=== PATIENT | male | born 1955 | race Caucasian/White ===

== ENCOUNTER 2018-05-17 00:19 | Emergency (ER) | payer OTHER ==
[2018-05-17] MEDS ORDERED: NA CHLORIDE 0.9% 1,000 ML ONE (01:50)
[2018-05-17] MEDS ORDERED: ONDANSETRON 4 MG/2 ML VIAL ONE (01:50)
[2018-05-17 02:15] LABS: Absolute Lymphocytes (CBC) 1.1 K/uL (0.7-4.9); Absolute Monocytes 0.6 K/uL (0.1-1.3); Absolute Neutrophil 10.8 K/uL (1.8-8.0); Basophils % 0.3 % (0-1.3); Eosinophils % 0.2 % (0-4.4); Hematocrit 44.4 % (39.6-49.0); Lymphocytes % 8.9 % (15.3-44.8); MCV 89.4 fL (80-100); MPV 9.4 fL (7.6-11.3); Monocytes % 5.1 % (3.3-12.3); RBC Red Blood Cell Count 4.96 M/uL (4.33-5.43)
[2018-05-17 02:53] LABS: Albumin 4.3 g/dL (3.4-5.0); Bilirubin Direct 0.1 mg/dL (0-0.2); Bilirubin Total 0.6 mg/dL (0.2-1.0); Potassium 4.1 mmol/L (3.5-5.1); Protein, Total 8.4 g/dL (6.4-8.2)
[2018-05-17 03:22] LABS: Urine Bacteria >50 /HPF (NONE SEEN); Urine Culture Reflex Order REFLEXED; Urine RBC <5 /HPF (NONE SEEN)
[2018-05-17 03:24] LABS: Urine Blood TRACE (NEG); Urine Glucose NEGATIVE (NEG); Urine Protein TRACE (NEG); Urine Specific Gravity 1.015 (1.005-1.030)
[2018-05-17 03:26] LABS: Blood Morphology Comment NOT SEEN (NOT SEEN); Platelet Estimate ADEQ
--- NOTE | 2018-05-17 04:02 | EDPHYS ---
Physician Documentation [facility] Name: Shaun Adkins Age: 62 yrs Sex: Male : 1955 Arrival Date: 05/17/2018 Time: 00:21 Bed 8 Private MD: Joe Torres T ED Physician Derrell Palmer HPI: 05/17 02:15 This 62 yrs old Male presents to ER via Ambulatory with complaints of wa Nausea/Vomiting, STOMACH PAIN. 02:15 The patient presents to the emergency department with nausea, vomiting, abdominal pain. wa Onset: The symptoms/episode began/occurred 2 day(s) ago. 02:46 Possible causes: unknown. The symptoms are aggravated by nothing. The symptoms are wa alleviated by nothing. Associated signs and symptoms: Pertinent positives: abdominal pain, nausea, vomiting, Pertinent negatives: diarrhea, dysuria, fever. Severity of symptoms: At their worst the symptoms were moderate in the emergency department the symptoms are unchanged. The patient has not experienced similar symptoms in the past. The patient has not recently seen a physician. h/o bladder CA. s/p cystostomy with redirected ostomy. Historical: - Allergies: 00:47 PENICILLINS; lp1 - Home Meds: 00:47 levothyroxine oral [Active]; lp1 - PMHx: 00:47 Bladder cancer; Thyroid problem; lp1 - PSHx: 00:47 Hernia repair; urostomy; lp1 - Immunization history:: Adult Immunizations up to date. - Social history:: Smoking status: Patient/guardian denies using tobacco. - Ebola Screening: : No symptoms or risks identified at this time. - Family history:: not pertinent. - Hospitalizations: : No recent hospitalization is reported. ROS: 02:48 Constitutional: Negative for fever, chills, and weight loss, Eyes: Negative for injury, wa pain, redness, and discharge, ENT: Negative for injury, pain, and discharge, Neck: Negative for injury, pain, and swelling, Cardiovascular: Negative for chest pain, palpitations, and edema, Respiratory: Negative for shortness of breath, cough, wheezing, and pleuritic chest pain, Back: Negative for injury and pain, : Negative for injury, bleeding, discharge, and swelling, MS/Extremity: Negative for injury and deformity, Skin: Negative for injury, rash, and discoloration, Neuro: Negative for headache, weakness, numbness, tingling, and seizure, Psych: Negative for depression, anxiety, suicide ideation, homicidal ideation, and hallucinations. 02:48 Abdomen/GI: Positive for abdominal pain, nausea and vomiting, Negative for diarrhea. 02:48 All other systems are negative. Exam: 02:49 Constitutional: This is a well developed, well nourished patient who is awake, alert, wa and in no acute distress. Head/Face: Normocephalic, atraumatic. Eyes: Pupils equal round and reactive to light, extra-ocular motions intact. Lids and lashes normal. Conjunctiva and sclera are non-icteric and not injected. Cornea within normal limits. Periorbital areas with no swelling, redness, or edema. ENT: Nares patent. No nasal discharge, no septal abnormalities noted. Tympanic membranes are normal and external auditory canals are clear. Oropharynx with no redness, swelling, or masses, exudates, or evidence of obstruction, uvula midline. Mucous membranes moist. Neck: Trachea midline, no thyromegaly or masses palpated, and no cervical lymphadenopathy. Supple, full range of motion without nuchal rigidity, or vertebral point tenderness. No Meningismus. Cardiovascular: Regular rate and rhythm with a normal S1 and S2. No gallops, murmurs, or rubs. Normal PMI, no JVD. No pulse deficits. Respiratory: Lungs have equal breath sounds bilaterally, clear to auscultation and percussion. No rales, rhonchi or wheezes noted. No increased work of breathing, no retractions or nasal flaring. Back: No spinal tenderness. No costovertebral tenderness. Full range of motion. Skin: Warm, dry with normal turgor. Normal color with no rashes, no lesions, and no evidence of cellulitis. MS/ Extremity: Pulses equal, no cyanosis. Neurovascular intact. Full, normal range of motion. Neuro: Awake and alert, GCS 15, oriented to person, place, time, and situation. Cranial nerves II-XII grossly intact. Motor strength 5/5 in all extremities. Sensory grossly intact. Cerebellar exam normal. Normal gait. Psych: Awake, alert, with orientation to person, place and time. Behavior, mood, and affect are within normal limits. 02:49 Abdomen/GI: Inspection: abdomen appears normal, Bowel sounds: normal, in all quadrants, Palpation: soft, in all quadrants, mild abdominal tenderness, in the diffuse. Vital Signs: 00:47 BP 128 / 98; Pulse 81; Resp 18; Temp 97.5(O); Pulse Ox 100% on R/A; Weight 90.72 kg; lp1 Height 5 ft. 10 in. (177.80 cm); 01:49 BP 128 / 87; Pulse 75; Resp 18; Pulse Ox 99% on R/A; ak1 00:47 Body Mass Index 28.70 (90.72 kg, 177.80 cm) lp1 MDM: 00:52 Patient medically screened. mn 02:50 Differential diagnosis: Nonspecific abd pain, gastritis, r/o bowel obstruction. will wa work up with labs and CT. will treat pain and reassess. 03:58 Data reviewed: vital signs, nurses notes. Test interpretation: by ED physician or wa midlevel provider: CT abd/pelvis: no acute process. labs noted for leukocytosis of 12.6 UA noted for >50 wbc per HPF. . ED course: improved. states no pain at 0400hrs. In the setting of ostomy, UA results could be contamination, however in the setting of pain and vomiting with no other source to explain presentation, will cover with abx and advise close f/u. 17:10 ED course: Called Mr. Adkins to inform him of the updated radiology findings. Discussed kdr both the enteritis and the umbilical hernia findings. He had no additional questions and was happy with the updated information. He indicated that he would contact his [facility] team to determine if they would need this information. 05/17 01:26 Order name: Basic Metabolic Panel; Complete Time: 03:00 mn 05/17 01:26 Order name: CBC with Diff; Complete Time: 03:44 mn 05/17 01:26 Order name: Hepatic Function; Complete Time: 03:00 mn 05/17 01:26 Order name: Lipase; Complete Time: 03:00 mn 05/17 01:26 Order name: Urine Microscopic Only; Complete Time: 03:44 mn 05/17 02:21 Order name: Manual Differential; Complete Time: 03:44 EDMS 05/17 01:26 Order name: IV Saline Lock; Complete Time: 01:41 mn 05/17 01:26 Order name: CT Abd/Pelvis - W/Contrast mn 05/17 02:59 Order name: Urine Dipstick--Ancillary (enter results); Complete Time: 03:44 md 05/17 03:24 Order name: Urine Culture [facility] 05/17 01:26 Order name: Labs collected and sent; Complete Time: 01:41 wa 05/17 01:26 Order name: Urine Dipstick-Ancillary (obtain specimen); Complete Time: 03:20 wa Administered Medications: 01:47 Drug: Zofran 4 mg Route: IVP; Site: right forearm; ak1 03:20 Follow up: Response: No adverse reaction ak1 01:47 Drug: NS 0.9% 1000 ml Route: IV; Rate: 1 bolus; Site: right forearm; ak1 02:50 Follow up: IV Status: Completed infusion ak1 03:58 CANCELLED (Physician Discretion): LevaQUIN 500 mg 100 ml IVPB once over 60 mins mn 04:13 Drug: LevaQUIN 500 mg Route: PO; ak1 04:13 Follow up: Response: Medication administered at discharge. ak1 Disposition: 05/17/18 04:02 Discharged to Home. Impression: Acute abdominal Pain, Acute vomiting, UTI. - Condition is Stable. - Discharge Instructions: Urinary Tract Infection, Adult, Nausea and Vomiting, Adult, [id number], Abdominal Pain, Adult, [id number]. - Prescriptions for Levaquin 500 mg Oral Tablet - take 1 tablet by ORAL route once daily for 3 days; 3 tablet. Zofran 4 mg Oral Tablet - take 1 tablet by ORAL route every 12 hours As needed; 20 tablet. - Medication Reconciliation Form, Thank You Letter, Antibiotic Education, Prescription Opioid Use form. - Follow up: Private Physician; When: 1 - 2 days; Reason: Recheck today's complaints. - Problem is new. - Symptoms have improved. - Notes: take medicine as prescribed. follow up with your doctor within 1-2 days for further assessment. return here immediately for any worsening or worrisome concerns Signatures: Dispatcher [employer] EDNY Devonte Leos MD MD kdr Pena, Laura, RN RN lp1 Farheen Wayne RN RN ak1 Derrell Palmer MD MD wa Corrections: (The following items were deleted from the chart) 03:58 03:53 LevaQUIN 500 mg 100 ml IVPB once over 60 mins ordered. [facility] 04:14 04:02 05/17/2018 04:02 Discharged to Home. Impression: Acute abdominal Pain; Acute ak1 vomiting; UTI. Condition is Stable. Forms are Medication Reconciliation Form, Thank You Letter, Antibiotic Education, Prescription Opioid Use. Follow up: Private Physician; When: 1 - 2 days; Reason: Recheck today's complaints. Problem is new. Symptoms have improved. mn
--- NOTE | 2018-05-17 04:02 | ER ---
Nurse's Notes [facility] Name: Shaun Adkins Age: 62 yrs Sex: Male : 1955 Arrival Date: 05/17/2018 Time: 00:21 Bed 8 Private MD: Joe Torres T Diagnosis: Acute abdominal Pain;Acute vomiting;UTI Presentation: 05/17 00:44 Presenting complaint: Patient states: Abdominal pain to mid abdomen that began this lp1 evening with vomiting; States regular BM, but feeling bloated, abdomen distended. Transition of care: patient was not received from another setting of care. Onset of symptoms was May 16, 2018 at 16:00. Risk Assessment: Do you want to hurt yourself or someone else? Patient reports no desire to harm self or others. Initial Sepsis Screen: Does the patient meet any 2 criteria? No. Patient's initial sepsis screen is negative. Does the patient have a suspected source of infection? No. Patient's initial sepsis screen is negative. Care prior to arrival: None. 00:44 Method Of Arrival: Ambulatory lp1 00:44 Acuity: EMILIANO 3 lp1 Historical: - Allergies: 00:47 PENICILLINS; lp1 - Home Meds: 00:47 levothyroxine oral [Active]; lp1 - PMHx: 00:47 Bladder cancer; Thyroid problem; lp1 - PSHx: 00:47 Hernia repair; urostomy; lp1 - Immunization history:: Adult Immunizations up to date. - Social history:: Smoking status: Patient/guardian denies using tobacco. - Ebola Screening: : No symptoms or risks identified at this time. - Family history:: not pertinent. - Hospitalizations: : No recent hospitalization is reported. Screenin:47 Abuse screen: Denies threats or abuse. Denies injuries from another. Nutritional lp1 screening: No deficits noted. Tuberculosis screening: No symptoms or risk factors identified. Fall Risk None identified. Assessment: 01:48 General: Appears in no apparent distress. Behavior is calm, cooperative. Pain: ak1 Complains of pain in abdomen. Neuro: No deficits noted. Cardiovascular: No deficits noted. Respiratory: No deficits noted. GI: Abdomen is round Bowel sounds present X 4 quads. : Reports urostomy. pt denies urine output at this time, will check again for urine sample. : No signs and/or symptoms were reported regarding the genitourinary system. EENT: No signs and/or symptoms were reported regarding the EENT system. Derm: No signs and/or symptoms reported regarding the dermatologic system. Musculoskeletal: No signs and/or symptoms reported regarding the musculoskeletal system. 03:20 Reassessment: Patient appears in no apparent distress at this time. Patient and/or ak1 family updated on plan of care and expected duration. Pain level reassessed. Patient is alert, oriented x 3, equal unlabored respirations, skin warm/dry/pink. Patient denies pain at this time. Patient states feeling better. Patient states symptoms have improved. Vital Signs: 00:47 BP 128 / 98; Pulse 81; Resp 18; Temp 97.5(O); Pulse Ox 100% on R/A; Weight 90.72 kg; lp1 Height 5 ft. 10 in. (177.80 cm); 01:49 BP 128 / 87; Pulse 75; Resp 18; Pulse Ox 99% on R/A; ak1 00:47 Body Mass Index 28.70 (90.72 kg, 177.80 cm) lp1 ED Course: 00:21 Patient arrived in ED. al2 00:22 Joe Torres MD is Private Physician. al2 00:38 Farheen Wayne, AG is Primary Nurse. ak1 00:46 Triage completed. lp1 00:47 Arm band placed on right wrist. lp1 00:52 Derrell Palmer MD is Attending Physician. wa 01:47 Initial lab(s) drawn, by nc, sent to lab. Inserted saline lock: 20 gauge in right ak1 forearm, using aseptic technique. Blood collected. 01:49 Patient has correct armband on for positive identification. Bed in low position. Call ak1 light in reach. Side rails up X 1. Adult w/ patient. Pulse ox on. NIBP on. 03:16 CT completed. Patient tolerated procedure well. Patient moved to CT WALKED. Patient eh moved back from CT. 03:22 CT Abd/Pelvis - W/Contrast In Process Unspecified. EDMS 04:14 No provider procedures requiring assistance completed. IV discontinued, intact, ak1 bleeding controlled, No redness/swelling at site. Pressure dressing applied. Administered Medications: 01:47 Drug: Zofran 4 mg Route: IVP; Site: right forearm; ak1 03:20 Follow up: Response: No adverse reaction ak1 01:47 Drug: NS 0.9% 1000 ml Route: IV; Rate: 1 bolus; Site: right forearm; ak1 02:50 Follow up: IV Status: Completed infusion ak1 03:58 CANCELLED (Physician Discretion): LevaQUIN 500 mg 100 ml IVPB once over 60 mins de 04:13 Drug: LevaQUIN 500 mg Route: PO; ak1 04:13 Follow up: Response: Medication administered at discharge. ak1 Outcome: 04:02 Discharge ordered by . wa 04:14 Discharged to home ambulatory, with family. ak1 04:14 Condition: good 04:14 Discharge instructions given to patient, family, Instructed on discharge instructions, follow up and referral plans. medication usage, Demonstrated understanding of instructions, follow-up care, medications, Prescriptions given X 2. 04:14 Patient left the ED. ak1 Signatures: Dispatcher [employer] EDBertrand Hernandez Laura, RN RN lp1 Farheen Wayne RN RN ak1 Derrell Palmer MD MD wa Love, Sally miles2
[2018-05-17] MEDS ORDERED: levoFLOXacin 500 MG TAB ONE (04:13)
--- NOTE | 2018-05-17 08:32 | RAD REPORT ---
EXAM DESCRIPTION: CT - Abdomen Pelvis W Contrast - 05/17/2018 6:42 am CLINICAL HISTORY: Abdominal pain, nausea, history of bladder cancer. A preliminary report was provided at the time of the study and reviewed prior to final report. COMPARISON: CT study June 2017 TECHNIQUE: Biphasic, helical CT imaging of the abdomen and pelvis was performed following 100 ml non -ionic IV contrast. No oral contrast administered. All CT scans are performed using dose optimization technique as appropriate and may include automated exposure control or mA/KV adjustment according to patient size. FINDINGS: No suspicious findings in the lung bases. The liver, spleen, and pancreas show no suspicious findings. Gallbladder and biliary tree are also wi thout suspicious finding. Gallstones can be occult on CT imaging. Symmetric renal function is seen with no hydronephrosis or suspicious renal mass. No pyelonephritis o r acute renal parenchymal process. The bladder has been resected. The patient has a right mid abdomen ileal conduit. No acute finding. No gastric dilatation or gastric wall thickening. Small bowel loops are not dilated but there are sev eral prominent small bowel loops. Nonspecific enteritis is suspected. There is moderate stool volume in the colon. Tortuous and redundant sigmoid colon is present. No appendicitis. Colon mass or primary colon infectious/inflammatory process is not suspected. No free air, pneumatosis or free fluid. No omental thickening or bulky lymphadenopathy. No adrenal abnormality. Postsurgical changes are noted to the anterior abdominal wall from prior hernia repair. Small bowel loops abut the surgical defect. There is slightly greater anterior convexity to the abdo tim wall. Recurrence of the hernia along the superior margin is suspected No suspicious bony findings. IMPRESSION: 1. Prominence of the small bowel loops suggests a nonspecific enteritis. No obstruction, free air or surgically emergent finding. 2. No pyelonephritis, hydronephrosis or acute finding. No suspicious findings of the right mid abd omen ileal conduit. 3. Periumbilical hernia repair changes are present. Recurrence of the hernia along the superior sheila n is evident. Small bowel loops abut the inferior margin of the hernia. Adhesion is not confirmed. No acute finding of the bowel at this site.
== END 2018-05-17 04:14 | disposition home or self-care (01) ==
LOC: ER 00:19
DX: N39.0 Urinary tract infection, site not specified (principal); R11.10 Vomiting, unspecified; E07.9 Disorder of thyroid, unspecified; Z88.0 Allergy status to penicillin
CPT/HCPCS: 36415; 74177; 80048; 80076; 81003; 81015; 83690; 85025; 87077; 87086; 87088; 87186; 96361; 96374; 99284; J2405; J7030; Q9967